=== PATIENT | male | born 1975 | race African-American/Black ===

== ENCOUNTER 2018-09-14 13:16 | Emergency (ER) | payer SELFPAY ==
[~2018-09-14] VITALS: Ht 162.6 cm; Wt 76.0 kg
[2018-09-14 13:19] VITALS: BP 105/78
== END 2018-09-14 14:46 | disposition left against medical advice (07) ==
LOC: ER 13:16
DX: S61.411A Laceration without foreign body of right hand, initial encounter (principal); F17.200 Nicotine dependence, unspecified, uncomplicated; Z53.21 Procedure and treatment not carried out due to patient leaving prior to being seen by health care provider; W25.XXXA Contact with sharp glass, initial encounter; Y93.89 Activity, other specified; Y92.89 Other specified places as the place of occurrence of the external cause; Y99.8 Other external cause status